=== PATIENT | male | born 1970 | race Hispanic/Latino ===

== ENCOUNTER 2023-12-23 17:41 | Emergency (ER) | payer MEDICARE, OTHER ==
[2023-12-23 19:18] LABS: ALT (SGPT) 38 U/L (8-55); AST (SGOT) 26 U/L (5-34); Albumin 4.2 g/dL (3.5-5.0); Alkaline Phosphatase 63 U/L (40-110); Anion Gap 14 mmol/L (10-20); BUN (Urea Nitrogen) 16 mg/dL (8.4-25.7); Band 8 % (5-11); Bilirubin, Total 0.4 mg/dL (0.2-1.2); Calc. Creatinine Clearance 0 mL/min (70-130); Calcium 9.4 mg/dL (7.8-10.44); Carbon Dioxide 24 mmol/L (22-29); Chloride 106 mmol/L (98-107); Eosinophils 1 % (0-10); Estimated GFR 76; Globulin 2.6 g/dL (2.4-3.5); Glucose 97 mg/dL (70-105); Hematocrit 53.4 % (42.0-52.0); Lymphocytes 19 % (21-51); MDiff Complete? YES; Mean Corpuscular HGB CONC 29.9 g/dL (32.0-36.0); Mean Corpuscular Hemoglobin 29.6 pg (27.0-31.0); Monocytes 7 % (0-10); Neutrophil 65 % (42-75); Platelet Adequacy Comment Appears Adequate; Platelet Count 276 10x3/uL (130-400); Protein, Total 6.8 g/dL (6.0-8.3); RBC Distribution Width 13.1 % (11.5-14.5); Sodium 140 mmol/L (136-145); White Blood Cell (WBC) Count 6.3 10x3/uL (4.8-10.8)
[2023-12-23 19:19] LABS: Troponin I Less than 0.010 ng/mL (< 0.028)
[2023-12-23 20:33] LABS: Troponin I Less than 0.010 ng/mL (< 0.028)
== END 2023-12-23 20:53 | disposition home or self-care (01) ==
LOC: MADERS 17:41
DX: R07.9 Chest pain, unspecified (principal)
CPT/HCPCS: 71045; 80053; 84484; 85025; 93005

== ENCOUNTER 2024-04-18 18:28 | Emergency (ER) | payer MEDICARE, OTHER ==
[2024-04-18 19:01] LABS: Bilirubin Negative (Negative); Blood, Urine Negative (Negative); Clarity Clear (Clear); Glucose, Urine (Dipstick) Negative (Negative); Ketone, Urine Trace mg/dL (Negative); Leukocyte Negative (Negative); Nitrite Negative (Negative); Protein, Urine (Dipstick) Negative (Neg-Trace); Specific Gravity, Urine 1.025 (1.005-1.030); pH, Urine 6.5 (5.0-9.0)
[2024-04-18 19:08] LABS: Bacteria/HPF Rare-Few HPF (None Seen); CAUTI Indications for Culture Pelvic or flank pain; Mucous/LPF 2+ LPF (<2+); RBC/HPF None Seen HPF (0-3); Squamous Epithelial 0-3 HPF (0-3); WBC/HPF 0-3 HPF (0-3)
[2024-04-18 19:09] LABS: Urine Culture Reflex No No
[2024-04-18] MEDS ORDERED: Ketorolac Tromethamine 60 MG/2 ML VIAL ONE (19:09)
[2024-04-18 19:35] LABS: #Basophils 0.1 thou/uL (0.0-0.2); #Eosinphils 0.1 thou/uL (0.0-0.7); #Lymphocytes 1.5 thou/uL (1.20-3.40); #Monocytes 0.4 thou/uL (0.11-0.59); #Neutrophils 3.1 thou/uL (1.40-6.50); %Basophils 1.3 % (0.0-1.0); %Eosinophils 1.6 % (0.0-10.0); %Lymphocytes 29.6 % (21.0-51.0); %Neutrophils 59.4 % (42.0-75.0); Hematocrit 48.9 % (42.0-52.0); Hemoglobin 15.4 g/dL (14.0-18.0); Mean Corpuscular HGB CONC 31.5 g/dL (32.0-36.0); Mean Corpuscular Hemoglobin 30.7 pg (27.0-31.0); Mean Corpuscular Volume 97.5 fl (78.0-98.0); Mean Platelet Volume 8.8 fL (7.4-10.4); Platelet Count 243 10x3/uL (130-400); RBC Distribution Width 12.8 % (11.5-14.5); Red Blood Cell (RBC) Count 5.02 mill/uL (4.70-6.10); White Blood Cell (WBC) Count 5.2 10x3/uL (4.8-10.8)
[2024-04-18 19:47] LABS: ALT (SGPT) 76 U/L (8-55); AST (SGOT) 110 U/L (5-34); Albumin 4.1 g/dL (3.5-5.0); Alkaline Phosphatase 56 U/L (40-110); Anion Gap 16 mmol/L (10-20); BUN (Urea Nitrogen) 15 mg/dL (8.4-25.7); Bilirubin, Total 0.5 mg/dL (0.2-1.2); Calc. Creatinine Clearance 0 mL/min (70-130); Calcium 9.4 mg/dL (7.8-10.44); Carbon Dioxide 23 mmol/L (22-29); Chloride 107 mmol/L (98-107); Estimated GFR 82; Globulin 2.8 g/dL (2.4-3.5); Glucose 88 mg/dL (70-105); Lipase 20 U/L (8-78); Potassium 3.8 mmol/L (3.5-5.1); Protein, Total 6.9 g/dL (6.0-8.3); Sodium 142 mmol/L (136-145)
== END 2024-04-18 20:19 | disposition home or self-care (01) ==
LOC: MADERS 18:28
DX: R10.31 Right lower quadrant pain (principal); R74.01 Elevation of levels of liver transaminase levels
CPT/HCPCS: 36415; 80053; 81001; 83690; 85025; 99284; J1885

== ENCOUNTER 2024-07-21 21:42 | Emergency (ER) | payer MEDICARE, OTHER ==
[2024-07-21] MEDS ORDERED: Ipratropium/Albuterol 3 ML NEB ONE (23:13)
[2024-07-21] MEDS ORDERED: predniSONE 20 MG TAB ONE (23:13)
== END 2024-07-21 23:41 | disposition home or self-care (01) ==
LOC: MADERS 21:42
DX: J06.9 Acute upper respiratory infection, unspecified (principal)
CPT/HCPCS: 71045; J7512; J7620

== ENCOUNTER 2024-07-27 09:05 | Outpatient (CLI) | payer MEDICARE, OTHER ==
[2024-07-27 09:42] LABS: ALT (SGPT) 27 U/L (8-55); AST (SGOT) 17 U/L (5-34); Albumin 4.1 g/dL (3.5-5.0); Alkaline Phosphatase 55 U/L (40-110); Anion Gap 14 mmol/L (10-20); BUN (Urea Nitrogen) 12 mg/dL (8.4-25.7); Bilirubin, Total 0.7 mg/dL (0.2-1.2); Calc. Creatinine Clearance 0 mL/min (70-130); Calcium 9.2 mg/dL (7.8-10.44); Carbon Dioxide 22 mmol/L (22-29); Cardiac Risk 2.4 (Less than 4.5); Chloride 108 mmol/L (98-107); Cholesterol 191 mg/dl (< 200 Desired); Estimated GFR 103; Globulin 2.9 g/dL (2.4-3.5); Glucose 122 mg/dL (70-105); HDL Cholesterol 78 mg/dL (>60 Neg Risk); LDL Cholesterol, Calculated 96 mg/dL; Sodium 140 mmol/L (136-145); Triglycerides 83 mg/dL (Less than 150)
== END 2024-07-27 09:06 | disposition home or self-care (01) ==
LOC: MADLAB 09:05
DX: E78.00 Pure hypercholesterolemia, unspecified (principal)
CPT/HCPCS: 36415; 80053; 80061

== ENCOUNTER 2024-11-08 11:20 | Emergency (ER) | payer OTHER, MEDICARE ==
[2024-11-08] MEDS ORDERED: Dexamethasone 10 MG/ML VIAL ONE (12:15)
[2024-11-08] MEDS ORDERED: Morphine 10 MG/ML VIAL ONE (12:15)
== END 2024-11-08 12:48 | disposition home or self-care (01) ==
LOC: MADERS 11:20
DX: M54.50 Low back pain, unspecified (principal)
CPT/HCPCS: 96372; 99283; J1100; J2270

== ENCOUNTER 2025-02-22 20:02 | Emergency (ER) | payer MEDICARE, OTHER ==
[2025-02-22] MEDS ORDERED: Tetracaine 0.5% PF 4 ML BOT ONE (20:21)
[2025-02-22] MEDS ORDERED: Fluorescein Opthalmic Strip ONE (20:21)
== END 2025-02-22 20:58 | disposition home or self-care (01) ==
LOC: MADERS 20:02
DX: S05.02XA Injury of conjunctiva and corneal abrasion without foreign body, left eye, initial encounter (principal); I10 Essential (primary) hypertension; X58.XXXA Exposure to other specified factors, initial encounter
CPT/HCPCS: 99283

== ENCOUNTER 2025-04-06 20:54 | Emergency (ER) | payer MEDICARE, OTHER ==
[2025-04-06] MEDS ORDERED: Fluorescein Opthalmic Strip ONE (21:09)
[2025-04-06] MEDS ORDERED: Tetracaine 0.5% PF 4 ML BOT ONE (21:09)
== END 2025-04-06 22:21 | disposition home or self-care (01) ==
LOC: MADERS 20:54
DX: S05.01XA Injury of conjunctiva and corneal abrasion without foreign body, right eye, initial encounter (principal); S00.211A Abrasion of right eyelid and periocular area, initial encounter; I10 Essential (primary) hypertension; X58.XXXA Exposure to other specified factors, initial encounter; Y93.89 Activity, other specified
CPT/HCPCS: 99283